=== PATIENT | female | born 1995 | race Caucasian/White ===

== ENCOUNTER 2021-09-19 10:13 | Emergency (ER) | payer BC, MEDICAID, OTHER ==
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
[2021-09-19 12:32] LABS: CORONAVIRUS COVID-19 NAA NEGATIVE (NEGATIVE); INFLUENZA A NAA NEGATIVE (NEGATIVE); INFLUENZA B NAA NEGATIVE (NEGATIVE)
[2021-09-19 12:37] LABS: BLOOD UREA NITROGEN,BUN 6 mg/dL (7.0-18.0); CARBON DIOXIDE,CO2 21.2 mmol/L (21.0-32.0); CHLORIDE,CL 104 mmol/L (98-107); GLUCOSE RANDOM 85 mg/dL (74-106); POTASSIUM,K 3.9 mmol/L (3.5-5.1); SODIUM,NA 138 mmol/L (136-145)
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
== END 2021-09-19 13:28 | disposition home or self-care (01) ==
LOC: MW.ED 10:13
DX: O99.891 Other specified diseases and conditions complicating pregnancy (principal); R10.9 Unspecified abdominal pain; Z3A.17 17 weeks gestation of pregnancy; Z20.822 Contact with and (suspected) exposure to COVID-19
CPT/HCPCS: 0240U; 36415; 76815; 80048; 81001; 84702; 85025; 87086; 87480; 87510; 87660; 99284

== ENCOUNTER 2021-09-21 03:37 | Emergency (ER) | payer OTHER ==
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
[2021-09-21] MEDS ORDERED: Morphine 4 MG/ML VIAL IM ONE (03:44)
[2021-09-21] MEDS ORDERED: Sodium Chloride 0.9% 2.5 ML Syringe FLUSH PRN (03:44)
[2021-09-21] MEDS ORDERED: Ondansetron 4 MG/2 ML SDV IVPUSH ONE (03:44)
[2021-09-21] MEDS ORDERED: Sodium Chloride 0.9% 10 ML Syringe FLUSH PRN (03:44)
[2021-09-21] MEDS ORDERED: Morphine 4 MG/ML VIAL IVPUSH ONE (03:55)
[2021-09-21 04:05] LABS: BLOOD UREA NITROGEN,BUN 10 mg/dL (7.0-18.0); CARBON DIOXIDE,CO2 23.1 mmol/L (21.0-32.0); CHLORIDE,CL 103 mmol/L (98-107); GLUCOSE RANDOM 105 mg/dL (74-106); POTASSIUM,K 3.5 mmol/L (3.5-5.1); SODIUM,NA 138 mmol/L (136-145)
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
[2021-09-21] MEDS ORDERED: ceFAZolin 1 GM in Premix Bag 1 BAG IV ONE (06:19)
== END 2021-09-21 07:00 | disposition home or self-care (01) ==
LOC: MERGE 03:37 → MW.ED 03:37
DX: O9A.212 Injury, poisoning and certain other consequences of external causes complicating pregnancy, second trimester (principal); O99.891 Other specified diseases and conditions complicating pregnancy; S39.91XA Unspecified injury of abdomen, initial encounter; R10.9 Unspecified abdominal pain; R82.71 Bacteriuria; Z3A.17 17 weeks gestation of pregnancy; Z79.899 Other long term (current) drug therapy; V49.40XA Driver injured in collision with unspecified motor vehicles in traffic accident, initial encounter
CPT/HCPCS: 36415; 76705; 76815; 80048; 81001; 85025; 87086; 96365; 96375; 99284; J0690; J2270; J2405

== ENCOUNTER 2022-02-22 21:10 | Inpatient (IN) | payer BC, OTHER ==
[2022-02-22 23:06] LABS: BLOOD UREA NITROGEN,BUN 10 mg/dL (7.0-18.0); CHLORIDE,CL 104 mmol/L (98-107); GLUCOSE RANDOM 108 mg/dL (74-106); POTASSIUM,K 3.6 mmol/L (3.5-5.1); SODIUM,NA 138 mmol/L (136-145)
[2022-02-23] MEDS ORDERED: Terbutaline 1 MG/ML SDV SUBCUT PRN (00:29)
[2022-02-23] MEDS ORDERED: Ondansetron 4 MG/2 ML SDV IVPUSH PRN (00:29)
[2022-02-23] MEDS ORDERED: Sodium Chloride 0.9% 10 ML Syringe FLUSH PRN (00:29)
[2022-02-23] MEDS ORDERED: Tranexamic Acid 1,000 MG in Sodium Chloride 0.9% 100 ML IV PRN ×2 (00:29→16:19)
[2022-02-23] MEDS ORDERED: Misoprostol 25 MCG (1/4 of 100 MCG) Tab VAG PRN ×2 (00:29)
[2022-02-23] MEDS ORDERED: Carboprost Tromethamine 250 MCG/1 ML Amp IM PRN (00:29)
[2022-02-23] MEDS ORDERED: Sodium Chloride 0.9% 2.5 ML Syringe FLUSH PRN (00:29)
[2022-02-23] MEDS ORDERED: Butorphanol 1 MG/ML SDV IVPUSH PRN (00:29)
[2022-02-23] MEDS ORDERED: Methylergonovine 0.2 MG/1 ML Amp IM PRN ×2 (00:29→16:19)
[2022-02-23] MEDS ORDERED: Misoprostol 200 MCG Tab PO PRN (00:29)
[2022-02-23] MEDS ORDERED: Sodium Chloride 0.9% 20 ML SDV IV PRN (00:29)
[2022-02-23] MEDS ORDERED: Lidocaine 1% 50 ML MDV INJECT PRN (00:29)
[2022-02-23] MEDS ORDERED: Water For Irrigation,Sterile 1,000 ML Container IRR PRN (00:29)
[2022-02-23] MEDS ORDERED: Oxytocin/0.9 % Sodium Chloride 30 UNIT/500 ML BAG IV SCH ×2 (00:30)
[2022-02-23] MEDS: Lactated Ringers 1,000 ML IV SCH ×2 (01:57→09:40)
[2022-02-23] MEDS ORDERED: Ropivacaine in NACL,ISO-OSM/PF 400 ML ONE (11:42)
[2022-02-23] MEDS ORDERED: ePHEDrine 50 MG/ML SDV IVPUSH PRN (11:57)
[2022-02-23] MEDS ORDERED: Ropivacaine in NACL,ISO-OSM/PF 800 MG in Premix Bag 1 BAG EPIDUR SCH ×2 (12:00)
[2022-02-23] MEDS ORDERED: Witch Hazel Medicated Pads 40/Jar TOP PRN (16:19)
[2022-02-23] MEDS ORDERED: Ibuprofen 400 MG Tab PO PRN (16:19)
[2022-02-23] MEDS ORDERED: Docusate Sodium 100 MG Cap PO PRN (16:19)
[2022-02-23] MEDS ORDERED: Benzocaine/Menthol 20%-0.5% Spray 78 GM Cannister TOP PRN (16:19)
[2022-02-23] MEDS ORDERED: Lanolin 100% Cream 7 GM Tube TOP PRN (16:19)
[2022-02-23] MEDS ORDERED: Acetaminophen 500 MG Tab PO PRN ×2 (16:19)
[2022-02-23] MEDS ORDERED: Bisacodyl 10 MG Supp RECTAL PRN (16:19)
[2022-02-23] MEDS: Ibuprofen 800 MG Tab PO PRN (18:00)
[2022-02-24] MEDS: Ibuprofen 800 MG Tab PO PRN ×2 (01:07→15:12)
[2022-02-24] MEDS ORDERED: Prenatal Multivitamin with Calcium/Folic Acid/Iron Tab PO SCH (09:00)
== END 2022-02-24 19:07 | disposition home or self-care (01) | DRG 560 ==
LOC: MW.OB 21:10 → MW.OBCHECK 21:10 → MW.OB 02-23 00:30 → OBSVTOIN 02-23 15:39 → MW.OB 02-23 22:12
PROVIDERS: ADMIT Obstetrics & Gynecology; ATTEND Obstetrics & Gynecology
PROC: 00HU33Z Insertion of Infusion Device into Spinal Canal, Percutaneous Approach (ICD-10-PCS; principal; 2022-02-23)
PROC: 10E0XZZ Delivery of Products of Conception, External Approach (ICD-10-PCS; 2022-02-23)
PROC: 3E033VJ Introduction of Other Hormone into Peripheral Vein, Percutaneous Approach (ICD-10-PCS; 2022-02-23)
PROC: 3E0P7VZ Introduction of Hormone into Female Reproductive, Via Natural or Artificial Opening (ICD-10-PCS; 2022-02-23)
PROC: 3E0R3BZ Introduction of Anesthetic Agent into Spinal Canal, Percutaneous Approach (ICD-10-PCS; 2022-02-23)
DX: O99.12 Other diseases of the blood and blood-forming organs and certain disorders involving the immune mechanism complicating childbirth (principal); O98.32 Other infections with a predominantly sexual mode of transmission complicating childbirth; A60.09 Herpesviral infection of other urogenital tract; O69.81X0 Labor and delivery complicated by cord around neck, without compression, not applicable or unspecified; D69.6 Thrombocytopenia, unspecified; Z37.0 Single live birth; Z20.822 Contact with and (suspected) exposure to COVID-19; Z91.040 Latex allergy status; Z86.16 Personal history of COVID-19; Z3A.39 39 weeks gestation of pregnancy; O99.214 Obesity complicating childbirth; E66.01 Morbid (severe) obesity due to excess calories
CPT/HCPCS: 36415; 51702; 59025; 59409; 80053; 81001; 82803; 85025; 85027; 86592; 86850; 86900; 86901; A9270-GY; J2590; J2795; J7120; U0002

== ENCOUNTER 2023-01-05 16:20 | Emergency (ER) | payer BC, OTHER ==
[2023-01-05 17:14] LABS: CORONAVIRUS COVID-19 NAA NEGATIVE (NEGATIVE); INFLUENZA A NAA NEGATIVE (NEGATIVE); INFLUENZA B NAA NEGATIVE (NEGATIVE); RESPIRATORY SYNCYTIAL VIR NAA NEGATIVE (NEGATIVE)
== END 2023-01-05 18:08 | disposition home or self-care (01) ==
LOC: MW.ED 16:20
DX: B34.9 Viral infection, unspecified (principal); R51.9 Headache, unspecified; E66.9 Obesity, unspecified; Z91.040 Latex allergy status; Z20.822 Contact with and (suspected) exposure to COVID-19; Z68.42 Body mass index [BMI] 45.0-49.9, adult
CPT/HCPCS: 0241U; 99284; 99283